=== PATIENT | male | born 1985 | race Caucasian/White ===

== ENCOUNTER 2019-05-14 10:10 | Outpatient (CLI) | payer OTHER, SELFPAY ==
--- NOTE | 2019-05-14 | EST_ITS ---
Patient Info Name: Rolly Salas Age: 33 years : 1985 Gender: Male Ht: 66 in Wt: 140 lbs BSA: 1.72 m2 Exam Date: 05/14/2019 10:49 AM Exam Location: [facility] Stress Patient Status: Outpatient Admit Date: 05/14/2019 Staff Ordering Physician: Loyd Delgado MD Attending Provider: Loyd Delgado MD Exercise Technologist: Ely Marks RDCS Nurse: Daisy Jacobsen, CLIFFORD, ACNP- Exam Type: CA stress test treadmill Study Info A treadmill exercise stress test was performed. Summary 1. Exercise capacity very good at >10 METS. 2. Hypertensive blood pressure response. 3. No exercise-induced chest pain. 4. 1.5-[address] segment depressions seen in the inferior leads consistent with ischemia. 5. ST response abnormal but may be false positive response, rapid normalization in recovery period. Protocol: [facility] Stress ECG Details Stage: REST Duration (min): 10 min : 32 sec Speed (mph): 0.0 Grade (%): 0 HR (bpm): 74 SBP (mmHg): 130 DBP (mmHg): 64 METS: --- Stage: REST Duration (min): 15 min : 57 sec Speed (mph): 0.0 Grade (%): 0 HR (bpm): 69 SBP (mmHg): 130 DBP (mmHg): 64 METS: --- Stage: STAGE 1 Duration (min): 1 min : 0 sec Speed (mph): 1.7 Grade (%): 10 HR (bpm): 94 SBP (mmHg): 130 DBP (mmHg): 64 METS: --- Stage: STAGE 1 Duration (min): 2 min : 0 sec Speed (mph): 1.7 Grade (%): 10 HR (bpm): 101 SBP (mmHg): 130 DBP (mmHg): 64 METS: --- Stage: STAGE 1 Duration (min): 3 min : 0 sec Speed (mph): 1.7 Grade (%): 10 HR (bpm): 90 SBP (mmHg): 177 DBP (mmHg): 75 METS: --- Stage: STAGE 2 Duration (min): 1 min : 0 sec Speed (mph): 2.5 Grade (%): 12 HR (bpm): 112 SBP (mmHg): 177 DBP (mmHg): 75 METS: --- Stage: STAGE 2 Duration (min): 2 min : 0 sec Speed (mph): 2.5 Grade (%): 12 HR (bpm): 107 SBP (mmHg): 170 DBP (mmHg): 78 METS: --- Stage: STAGE 2 Duration (min): 3 min : 0 sec Speed (mph): 2.5 Grade (%): 12 HR (bpm): 115 SBP (mmHg): 170 DBP (mmHg): 78 METS: --- Stage: STAGE 3 Duration (min): 1 min : 0 sec Speed (mph): 3.4 Grade (%): 14 HR (bpm): 125 SBP (mmHg): 185 DBP (mmHg): 81 METS: --- Stage: STAGE 3 Duration (min): 2 min : 0 sec Speed (mph): 3.4 Grade (%): 14 HR (bpm): 123 SBP (mmHg): 185 DBP (mmHg): 81 METS: --- Stage: STAGE 3 Duration (min): 3 min : 0 sec Speed (mph): 3.4 Grade (%): 14 HR (bpm): 129 SBP (mmHg): 203 DBP (mmHg): 75 METS: --- Stage: STAGE 4 Duration (min): 1 min : 0 sec Speed (mph): 4.2 Grade (%): 16 HR (bpm): 146 SBP (mmHg): 203 DBP (mmHg): 75 METS: --- Stage: STAGE 4 Duration (min): 2 min : 0 sec Speed (mph): 4.2 Grade (%): 16 HR (bpm): 152 SBP (mmHg):
--- NOTE | 2019-05-19 20:30 | WPDHOLTEREM ---
Holter/Event Monitor Holter/Event Monitor Date of procedure: 05/14/19 Procedure Type: 48 hour Holter monitor Diagnosis: palpitations Indications: palpitations Image/Tracing Quality: good Finding: Date of service: 05/19/2019 The patient was monitored for 24 hours. The underlying rhythm was sinus with a minimum heart rate of 41 beats per minute, average heart rate of 71 beats per minute and a maximum heart rate of 182 beats per minute. There were 2 PVCs and 20 APCs. There was no atrial fibrillation, SVT, VT, conduction problems or pauses. No symptoms were recorded. . Conclusion: . Unremarkable Holter monitor. Rare PACs and PVCs. No symptoms recorded
== END 2019-05-14 10:11 | disposition home or self-care (01) ==
PROVIDERS: PCP Emergency Medicine; Visit Provider Emergency Medicine
DX: R00.2 Palpitations (principal)
CPT/HCPCS: 93017; 93225; 93226

== ENCOUNTER 2021-03-29 13:41 | Outpatient (CLI) | payer OTHER, SELFPAY ==
--- NOTE | ~2021-03-29 | XR_ITS ---
EXAMINATION: XR thoracic spine 3V DATE: 03/29/2021 14:04 INDICATION: Muscle spasm of the back TECHNIQUE: AP, lateral and lateral swimmer's views of the thoracic spine were obtained. COMPARISON: None. FINDINGS: There is no fracture, dislocation, or subluxation. The vertebral body heights, alignment, a nd intervertebral disc spaces are normal. The paravertebral soft tissues are unremarkable. IMPRESSION: 1. No acute osseous abnormality. Reviewed, dictated and finalized at location F. UI DESIGNER
--- NOTE | ~2021-03-29 | XR_ITS ---
EXAMINATION: XR lumbar spine bending only INDICATION: Low back pain TECHNIQUE: Lateral views of the lumbar spine are obtained in flexion and extension. COMPARISON: None available FINDINGS: There are 2 mm of retrolisthesis of L4 on L5 which do not change with flexion or extension. The vertebral body heights are maintained. There is moderate loss of intervertebral disc space heigh t at L5-S1. No fracture is identified. IMPRESSION: 1. Mild lumbar spondylosis. Reviewed, dictated and finalized at location F. OL CONDUCTOR IMPRESSION: 1. Mild lumbar spondylosis.
== END 2021-03-29 13:42 | disposition home or self-care (01) ==
LOC: ANHIMG 13:47
PROVIDERS: PCP Emergency Medicine; Visit Provider Emergency Medicine
DX: M62.830 Muscle spasm of back (principal); M47.816 Spondylosis without myelopathy or radiculopathy, lumbar region
CPT/HCPCS: 72072; 72120

== ENCOUNTER 2022-04-06 00:39 | Day surgery (SDC) | payer OTHER, SELFPAY ==
[2022-03-23 13:48] VITALS: BMI 23.5
[2022-04-06 09:58] VITALS: BP 138/87; PULSE 75; RESP 16; TEMP 36.4; O2SAT 100; BMI 23.6
[2022-04-06] MEDS: LACTATED RINGERS 1,000 ML 150 ML IV CONT (10:06)
--- NOTE | 2022-04-06 10:34 | PM.HPGS ---
History of Present Illness History of Present Illness Consent: Risks, benefits, and alternatives have been discussed and questions answered. Patient agrees to proceed with procedure. Chief complaint: blood in stool Narrative: Rolly Salas is a 36 year old male with intemittent blood in stool, never had colonoscopy Review of Systems Constitutional: Constitutional: Denies headache(s) and Denies weakness Eyes: Eyes: Denies blurry vision ENT: Reports Normal hearing present, Denies headache(s) and Denies neck pain Cardiovascular: Cardiovascular: Denies chest pain and Denies dyspnea Respiratory: Respiratory: Denies dyspnea Gastrointestinal: Gastrointestinal: Reports no additional gastrointestinal complaints Genitourinary: Genitourinary: Denies dysuria Musculoskeletal: Musculoskeletal: Denies neck pain Integumentary/Breasts: Skin/Breast: Denies dry skin Neurologic: Reports Normal hearing present, Denies headache(s) and Denies weakness Psychiatric: Psychiatric: Denies anxiety Endocrine: Endocrine: Denies change in body appearance Hematologic/Lymphatic: Hematologic/Lymphatic: Denies easy bleeding Allergic/Immunologic: Allergic/Immunologic: Denies urticaria PMF Past Medical History Medical History (Updated 04/06/22 @ 10:34 by Vish Queen MD) FHx: migraine headaches Hematochezia HTN (hypertension) Hyperlipidemia Palpitation Family History Family History (Updated 06/11/19 @ 09:28 by Bea Shrestha CMA) Father Depression Hypertension Anxiety Mother Depression Hypertension Anxiety Grandparent Carcinoma of colon Family history of malignant neoplasm of breast Sibling Hypertension Anxiety Social History Social History Smoking status: Never smoker Second hand tobacco smoke exposure: No Alcohol intake: current Drinks per week: 5 Substance use type: marijuana Living arrangements: with family Spiritual care concerns: No Meds Home Medications and Allergies Home Medications Medication Instructions Recorded Confirmed Type alprazolam 0.5 mg tablet 0.5 mg PO DAILY 06/11/19 04/06/22 History cetirizine 10 mg tablet (Zyrtec) 10 mg PO DAILY 06/11/19 04/06/22 History fluticasone propionate 50 1 spray intranasal DAILY 06/11/19 04/06/22 History mcg/actuation nasal spray,suspension pantoprazole 40 mg tablet,delayed 40 mg PO DAILY 03/23/22 04/06/22 History release tramadol 50 mg tablet 50 mg PO PRN PRN Pain 03/23/22 04/06/22 History Allergies Allergy/AdvReac Type Severity Reaction Status Date / Time escitalopram [From Lexapro] Allergy Mild nausea Verified 04/06/22 09:57 headache Vital Signs Vital Signs - 24 hr 04/06/22 09:58 Temperature 97.6 F Pulse Rate 75 Respiratory Rate 16 Blood Pressure 138/87 Pulse Oximetry 100 Oxygen Delivery Room Air Exam Const: General: comfortable and no acute distress HENMT: Face/Nose/Sinus: Normal nares present Eyes: General: appearance normal, both eyes and all related structures Neck: Neck: no JVD Resp: Auscultation: clear to auscultation bilaterally Cardio: Rate: regular rate Rhythm: regular rhythm GI: Inspection: non-distended GI Palp: Yes Soft to palpation Skin: General skin exam: normal color Neuro: General: gait normal Speech: normal speech Extrem: General: normal to inspection Psych: Mental Status: mental status grossly normal Assessment and Plan Assessment and plan (1) Hematochezia: Code(s): K92.1 - Melena Status: Acute Assessment and Plan: colonoscopy
--- NOTE | 2022-04-06 10:35 | P.PNAN_ITS ---
Anes - Initial Pre Proc Eval Procedure: Operation Date: 04/06/22 11:00 Proposed Procedures p Colonoscopy - Vish Queen MD Date/Time: 04/06/22 10:35 Surgeon: Vish Queen MD Pre Op Diagnosis: blood in stool Patient Data Age: 36 Gender: M Height: 1.68 m Weight: 66.4 kg Last Vital Signs Temp 97.6 F 04/06/22 09:58 Pulse 75 04/06/22 09:58 Resp 16 04/06/22 09:58 BP 138/87 04/06/22 09:58 Pulse Ox 100 04/06/22 09:58 O2 Del Method Room Air 04/06/22 09:58 Allergies Allergy/AdvReac Type Severity Reaction Status Date / Time escitalopram [From Lexapro] Allergy Mild nausea Verified 04/06/22 09:57 headache Home Medications Medication Instructions Recorded Confirmed Type alprazolam 0.5 mg tablet 0.5 mg PO DAILY 06/11/19 04/06/22 History cetirizine 10 mg tablet (Zyrtec) 10 mg PO DAILY 06/11/19 04/06/22 History fluticasone propionate 50 1 spray intranasal DAILY 06/11/19 04/06/22 History mcg/actuation nasal spray,suspension pantoprazole 40 mg tablet,delayed 40 mg PO DAILY 03/23/22 04/06/22 History release tramadol 50 mg tablet 50 mg PO PRN PRN Pain 03/23/22 04/06/22 History Patient hx anesthesia problems: none Family hx anesthesia problems: none Results Review: All pre-operative results and documents have been reviewed as part of the pre-operative evaluation. [facility] Past Medical History Medical History (Updated 04/06/22 @ 10:34 by Vish Queen MD) FHx: migraine headaches Hematochezia HTN (hypertension) Hyperlipidemia Palpitation Family History Family History (Updated 06/11/19 @ 09:28 by Bea Shrestha CMA) Father Depression Hypertension Anxiety Mother Depression Hypertension Anxiety Grandparent Carcinoma of colon Family history of malignant neoplasm of breast Sibling Hypertension Anxiety Social History Social History Smoking status: Never smoker Second hand tobacco smoke exposure: No Alcohol intake: current Drinks per week: 5 Substance use type: marijuana Living arrangements: with family Spiritual care concerns: No Anes - Eval Final PreProcedure Day of Procedure 04/06/22 10:35 Patient weight: normal Heart: regular rate and rhythm Lungs: clear to auscultation Airway: Mallampati scale class II Neurological: alert and oriented Last oral intake: >/= 8 hours ASA classification: II Emergent: no Anesthetic plan: proceed Anesthesia type and monitoring: general GIVS and standard monitoring Results Review: All pre-operative results and documents have been reviewed as part of the pre- operative evaluation. Informed Consent: The patient's anesthetic plan and its attendant risks and benefits were discussed with the patient/family/POA. Questions were solicited and answers provided to the satisfaction of the patient/family/POA.
[2022-04-06 10:55] VITALS: BP 118/83; PULSE 87; RESP 16; O2SAT 100
[2022-04-06 11:05] VITALS: BP 119/77; PULSE 81; RESP 14; O2SAT 100
[2022-04-06 11:15] VITALS: BP 123/85; PULSE 82; RESP 16; O2SAT 100
== END 2022-04-06 11:37 | disposition home or self-care (01) ==
PROVIDERS: PCP Emergency Medicine; Visit Provider Internal Medicine Gastroenterology
PROC: 0DJD8ZZ Inspection of Lower Intestinal Tract, Via Natural or Artificial Opening Endoscopic (ICD-10-PCS; CPT 45378; principal; 2022-04-06 11:00)
DX: K62.5 Hemorrhage of anus and rectum (principal); K64.8 Other hemorrhoids
CPT/HCPCS: 45378; J2704; J7120

== ENCOUNTER → 2022-11-15 13:17 | Outpatient (CLI) | payer OTHER, SELFPAY ==
--- NOTE | ~2022-11-15 | XR_ITS ---
Clinical Indication: Cough PA and lateral views of the chest: Comparison: None Findings: Calcified left perihilar granuloma noted. The lungs are otherwise clear, without evidence o f focal consolidation or pleural effusion. Cardiomediastinal silhouette is within normal limits. Bon es and soft tissues are unremarkable. Impression: No significant abnormality seen. Reviewed, dictated and finalized at location . Impression: No significant abnormality seen.
== END ==
PROVIDERS: PCP Emergency Medicine; Visit Provider Emergency Medicine
DX: R05.9 Cough, unspecified (principal); R06.02 Shortness of breath
CPT/HCPCS: 71046